=== PATIENT | male | born 1950 | race Caucasian/White ===

== ENCOUNTER 2018-05-09 09:48 | Emergency (ER) | payer MEDICARE, OTHER ==
[~2018-05-09] VITALS: Ht 177.8 cm; Wt 105.2 kg
[2018-05-09] MEDS ORDERED: HYDROCHLOROTH12.5 M1 PO (09:56)
[2018-05-09] MEDS ORDERED: SIMVASTATIN40 MG PO (09:56)
[2018-05-09] MEDS ORDERED: FLONASE 0.05%50 MCG NASAL (09:57)
[2018-05-09] MEDS ORDERED: LISINOPRIL20 MG PO (09:57)
[2018-05-09 10:09] LABS: ABSOLUTE BASOPHILS 0.1 thou/uL (0.0-0.2); ABSOLUTE LYMPHOCYTES 1.4 thou/uL (0.8-5.3); ABSOLUTE NEUTROPHILS 4.1 thou/uL (1.6-8.1); BASOPHILS 0.8 %; EOSINOPHILS 0.7 %; HEMATOCRIT 49.8 % (42.0-52.0); HEMOGLOBIN 16.7 gm/dL (14.0-18.0); LYMPHOCYTES 20.9 %; MCH 31.2 pg (26.0-34.0); MCHC 33.5 g/dL (28.0-37.0); MCV 93.1 fL (80.0-100.0); MONOCYTES 15.3 %; MPV 7.9 fl. (7.2-11.1); NUCLEATED RBCS 0 /100WBC; PLATELET COUNT* 193 thou/uL (150-400); POLYS 62.3 %; RBC 5.34 mil/uL (4.50-6.00); RDW-CV 12.7 % (10.5-14.5); WBC 6.6 thou/uL (4.0-11.0)
[2018-05-09 10:20] LABS: ANION GAP 10 mmol/L (7-16); BUN 13 mg/dL (7-18); CALCIUM 9.4 mg/dL (8.5-10.1); CHLORIDE 100 mmol/L (98-107); CO2 28 mmol/L (21-32); GLUCOSE 118 mg/dL (70-99); POTASSIUM 3.8 mmol/L (3.5-5.1); SODIUM 138 mmol/L (136-145)
[2018-05-09 10:22] LABS: APTT 28.2 Seconds (25.0-31.3); INR 1.1; PROTIME 10.8 Seconds (9.20-11.50)
[2018-05-09 10:39] LABS: ALBUMIN 4.2 g/dL (3.4-5.0); ALKALINE PHOSPHATASE 51 U/L (46-116); CK-MB MASS 1.8 ng/mL (<0.5-3.6); LIPASE 162 U/L (73-393); MAGNESIUM 1.8 mg/dL (1.8-2.4); NT-PRO BRAIN NAT PEPTIDE 15 pg/mL (<300); SGOT 22 U/L (15-37); SGPT 30 U/L (30-65); TOTAL BILIRUBIN 0.4 mg/dL (<0.1-1.0); TOTAL PROTEIN 8.5 g/dL (6.4-8.2); TROPONIN-I LEVEL <0.06 ng/mL (<0.06)
[2018-05-09 10:58] VITALS: BP 128/83
--- NOTE | 2018-05-09 14:01 | EKG ---
[place] [address] ELECTROCARDIOGRAM REPORT Name: VILMA AYALA JR [id number] Admission: 05/09/18 Attend Phys: Discharge: 05/09/18 Date of : 48 Report #: [id number] THIS REPORT FOR: //name// [facility] ED Test Date: 2018-05-09 Test Time: 09:53:11 Pat Name: VILMA AYALA Department: Room: Gender: Podiatric Aide: Nolberto BISHOP : 1950 Requested By: Julio Cesar Overton Order Number: [id number] MD: Td Capellan Measurements Intervals [place] Rate: 111 P: 61 KS: 120 QRS: 74 QRSD: 96 T: -28 QT: 312 QTc: 424 Interpretive Statements Sinus tachycardia Multiple ventricular premature complexes Left atrial enlargement Borderline repolarization abnormality No previous ECG available for comparison Electronically Signed On 05-09-2018 14:01:28 CDT by Td Capellan [email or web address] <ELECTRONICALLY SIGNED> By: Td Capellan MD, [facility] 05/09/18 [id number] [id number] Td Capellan MD, FACC /EPI
== END 2018-05-09 10:59 | disposition home or self-care (01) ==
LOC: M.ERS 09:48
PROVIDERS: Family Medicine
DX: R00.0 Tachycardia, unspecified (principal); I10 Essential (primary) hypertension; E78.5 Hyperlipidemia, unspecified; Z88.2 Allergy status to sulfonamides

== ENCOUNTER 2020-12-05 08:24 | Emergency (ER) | payer MEDICARE, OTHER ==
[~2020-12-05] VITALS: Ht 175.3 cm; Wt 104.3 kg
[~2020-12-05 08:24] MED LIST: FLONASE 0.05%50 MCG NASAL; HYDROCHLOROTH12.5 M1 PO; LISINOPRIL20 MG PO; SIMVASTATIN40 MG PO
[2020-12-05] MEDS ORDERED: HYDROCODON-ACE1 EAC7 PO (10:13)
[2020-12-05 10:29] VITALS: BP 180/92
== END 2020-12-05 10:30 | disposition home or self-care (01) ==
LOC: M.ERS 08:24
DX: S86.912A Strain of unspecified muscle(s) and tendon(s) at lower leg level, left leg, initial encounter (principal); I10 Essential (primary) hypertension; E78.5 Hyperlipidemia, unspecified; Z79.899 Other long term (current) drug therapy; Z88.2 Allergy status to sulfonamides; X50.1XXA Overexertion from prolonged static or awkward postures, initial encounter; Y93.89 Activity, other specified; Y92.89 Other specified places as the place of occurrence of the external cause; Y99.8 Other external cause status

== ENCOUNTER → 2020-12-20 | Outpatient (CLI) | payer MEDICARE, OTHER ==
[~2020-12-20] MED LIST changes: +HYDROCODON-ACE1 EAC7 PO
== END ==
LOC: M.MRI 07:04
PROVIDERS: ATTEND Family Medicine
DX: S83.241A Other tear of medial meniscus, current injury, right knee, initial encounter (principal); S83.411A Sprain of medial collateral ligament of right knee, initial encounter; X58.XXXA Exposure to other specified factors, initial encounter; Y93.89 Activity, other specified; Y92.89 Other specified places as the place of occurrence of the external cause; Y99.8 Other external cause status